=== PATIENT | male | born 1990 | race Caucasian/White ===

== ENCOUNTER 2020-07-30 09:15 | Emergency (ER) | payer OTHER ==
[~2020-07-30] VITALS: Ht 172.7 cm; Wt 83.9 kg
[2020-07-30 09:22] VITALS: BP 134/68
--- NOTE | 2020-07-30 09:23 | NUR ---
SEEN AND EXAMINED BY .
--- NOTE | 2020-07-30 09:26 | NUR ---
RING REMOVED BY ONCOLOGY NURSE NAVIGATOR.
--- NOTE | 2020-07-30 09:27 | NUR ---
Patient discharged in custody in stable condition. Written and verbal after care instructions given. Patient verbalizes understanding of instruction.
== END 2020-07-30 09:30 ==
LOC: ER 09:25
DX: M79.5 Residual foreign body in soft tissue (principal)